=== PATIENT | female | born 1985 | race African-American/Black ===

== ENCOUNTER 2018-04-05 10:49 | Emergency (ER) | payer OTHER ==
[~2018-04-05] VITALS: Ht 165.1 cm; Wt 79.5 kg
[~2018-04-05 10:49] MED LIST: ESOM20CA31 PO
[2018-04-05] MEDS ORDERED: IBUP200C5 PO (10:56)
[2018-04-05 12:10] VITALS: BP 130/91
== END 2018-04-05 12:27 | disposition home or self-care (01) ==
LOC: EMS 10:50
DX: K08.89 Other specified disorders of teeth and supporting structures (principal); K21.9 Gastro-esophageal reflux disease without esophagitis; Z87.891 Personal history of nicotine dependence